=== PATIENT | male | born 2000 | race Two or more races ===

== ENCOUNTER 2025-07-02 18:00 | Emergency (ER) | payer BC ==
[~2025-07-02] VITALS: Ht 172.7 cm; Wt 81.6 kg
[2025-07-02] MEDS ORDERED: ZOLOFT100 MG PO (18:41)
[2025-07-02] MEDS ORDERED: PROPECIA1 MG PO (18:42)
[2025-07-02] MEDS ORDERED: KETOROLAC TROMETHAMINE 30 MG VIAL IM ONE (19:15)
[2025-07-02] MEDS ORDERED: DICLOFENAC SODI50 MG PO (19:46)
[2025-07-02] MEDS ORDERED: KETOROLAC TROMETHAMINE 30 MG VIAL ONE (20:27)
== END 2025-07-02 23:07 | disposition home or self-care (01) ==
LOC: ER 18:01
DX: S93.401A Sprain of unspecified ligament of right ankle, initial encounter (principal); X50.1XXA Overexertion from prolonged static or awkward postures, initial encounter; Y93.89 Activity, other specified; Y92.89 Other specified places as the place of occurrence of the external cause; E78.00 Pure hypercholesterolemia, unspecified; F41.8 Other specified anxiety disorders